=== PATIENT | male | born 1955 | race African-American/Black ===

== ENCOUNTER 2018-10-18 20:11 | Observation (INO) | payer BC, MEDICARE ==
--- NOTE | 2018-10-18 21:10 | RAD ---
ONE VIEW CHEST: HISTORY: Syncope. COMPARISON: None. FINDINGS: Atherosclerosis of the aortic knob. Normal cardiac silhouette. The pulmonary vessels and hilum are normal. No masses or consolidation. No pneumothorax or osseous abnormalities. IMPRESSION: 1. Atherosclerosis. 2. No acute cardiopulmonary process. POS: PPP
[2018-10-18 21:18] LABS: #Basophils 0.1 thou/uL (0.0-0.2); #Eosinphils 0.2 thou/uL (0.0-0.7); #Lymphocytes 1.5 thou/uL (1.20-3.40); #Monocytes 0.9 thou/uL (0.11-0.59); #Neutrophils 6.5 thou/uL (1.40-6.50); %Basophils 0.8 % (0.0-1.0); %Eosinophils 1.8 % (0.0-10.0); %Lymphocytes 16.2 % (21.0-51.0); %Monocytes 9.4 % (0.0-10.0); %Neutrophils 71.8 % (42.0-75.0); Hemoglobin 15.7 g/dL (14.0-18.0); Mean Corpuscular HGB CONC 33.4 g/dL (32.0-36.0); Mean Corpuscular Hemoglobin 31.5 pg (27.0-31.0); Mean Corpuscular Volume 94.3 fL (78.0-98.0); Mean Platelet Volume 9.8 fL (7.4-10.4); Platelet Count 133 thou/uL (130-400); RBC Distribution Width 13.9 % (11.5-14.5); Red Blood Cell (RBC) Count 4.98 mill/uL (4.70-6.10); White Blood Cell (WBC) Count 9.1 thou/uL (4.8-10.8)
[2018-10-18 21:38] LABS: ALT (SGPT) 18 U/L (8-55); AST (SGOT) 17 U/L (5-34); Albumin 4.2 g/dL (3.4-4.8); Alkaline Phosphatase 84 U/L (40-150); Anion Gap 14 mmol/L (10-20); BUN (Urea Nitrogen) 16 mg/dL (8.4-25.7); Bilirubin, Total 0.4 mg/dL (0.2-1.2); CK (CPK) 91 U/L (30-200); Calc. Creatinine Clearance 0 mL/min (70-130); Calcium 9.7 mg/dL (7.8-10.44); Carbon Dioxide 22 mmol/L (23-31); Chloride 102 mmol/L (98-107); Estimated GFR-MDRD 58; Globulin 3.2 g/dL (2.4-3.5); Glucose 129 mg/dL (80-115); Lipase 66 U/L (8-78); Potassium 3.5 mmol/L (3.5-5.1); Protein, Total 7.4 g/dL (5.8-8.1); Sodium 134 mmol/L (136-145)
--- NOTE | 2018-10-18 21:40 | CT ---
CT BRAIN NONCONTRAST: DATE: 10/18/2018 HISTORY: 63-year-old male with loss of consciousness. FINDINGS: There is no evidence of acute intra-axial or extra-axial hemorrhage. There is no midline shift or any other mass effect. There is a zoie cisterna magna. There is no evidence of obstructive hydrocephalus. Calvarium is intact. There is diffuse brain parenchymal volume loss. There are low att enuation areas in the white matter. These are nonspecific, but in a patient of this age, they are probably chronic ischemic white matter changes due to microvascular atherosclerosis. Tiny old lacunar infarctions of the basal ganglia and thalami, right greater than left. IMPRESSION: 1) No acute intracranial findings. 2) involutional changes and severe chronic ischemic white matter changes. 3) tiny old lacunar infarctions of bilateral deep loco nuclei.
[2018-10-19 01:02] LABS: Troponin I Less than 0.010 ng/mL (< 0.028)
[2018-10-19] MEDS ORDERED: Sodium Chloride 0.9% 1,000 ML IV SCH (02:30)
[2018-10-19 02:53] VITALS: BMI 34.2
[2018-10-19] MEDS ORDERED: hydrALAZINE 20 MG/ML VIAL SLOW IVP SCH (03:30)
[2018-10-19 03:53] LABS: #Eosinphils 0.2 thou/uL (0.0-0.7); #Lymphocytes 1.6 thou/uL (1.20-3.40); #Monocytes 0.9 thou/uL (0.11-0.59); #Neutrophils 5.6 thou/uL (1.40-6.50); %Basophils 0.1 % (0.0-1.0); %Eosinophils 1.9 % (0.0-10.0); %Lymphocytes 19.5 % (21.0-51.0); %Monocytes 10.4 % (0.0-10.0); %Neutrophils 68.1 % (42.0-75.0); Hemoglobin 14.2 g/dL (14.0-18.0); Mean Corpuscular Hemoglobin 31.8 pg (27.0-31.0); Mean Corpuscular Volume 93.5 fL (78.0-98.0); Mean Platelet Volume 10.5 fL (7.4-10.4); Platelet Count 124 thou/uL (130-400); RBC Distribution Width 13.8 % (11.5-14.5); Red Blood Cell (RBC) Count 4.47 mill/uL (4.70-6.10); White Blood Cell (WBC) Count 8.2 thou/uL (4.8-10.8)
[2018-10-19 03:55] LABS: Anion Gap 12 mmol/L (10-20); BUN (Urea Nitrogen) 17 mg/dL (8.4-25.7); Calc. Creatinine Clearance 86 mL/min (70-130); Calcium 9.8 mg/dL (7.8-10.44); Carbon Dioxide 25 mmol/L (23-31); Chloride 103 mmol/L (98-107); Estimated GFR-MDRD 59; Glucose 194 mg/dL (80-115); Magnesium 2.1 mg/dL (1.6-2.6); Potassium 3.6 mmol/L (3.5-5.1); Sodium 136 mmol/L (136-145)
[2018-10-19 04:00] LABS: Troponin I Less than 0.010 ng/mL (< 0.028)
[2018-10-19] MEDS: Sodium Chloride 0.9% 1,000 ML IV SCH (04:13)
[2018-10-19] MEDS: Fluticasone Propionate Nasal Spray 16 gm Bottle NASAL SCH ×2 (04:13→08:17)
[2018-10-19] MEDS ORDERED: HYDROcodone/Acetaminophen 5/325 mg Tablet PO PRN (09:50)
[2018-10-19] MEDS ORDERED: Senokot S 8.6-50 MG TAB PO PRN (09:50)
[2018-10-19] MEDS ORDERED: Acetaminophen 325 MG TAB PO PRN (09:50)
[2018-10-19] MEDS ORDERED: Dextrose 50% Abboject 50 ML SYRINGE SLOW IVP PRN (10:02)
[2018-10-19] MEDS ORDERED: HumaLOG 300 UNITS/3 ML VIAL SC PRN (10:02)
[2018-10-19] MEDS ORDERED: Dextrose 5% in Water 1,000 ML IV PRN (10:02)
[2018-10-19] MEDS ORDERED: Aspirin 325 mg Enteric Coated Tablet PO SCH (10:15)
--- NOTE | 2018-10-19 10:32 | ULT ---
US Carotid Doppler STANDARD History: Syncope Comparison: None. Findings: Real-time grayscale, color, and spectral analysis of the extracranial carotid and vertebral arteries was performed. High-grade plaque both common carotid arteries both calcific and soft. No elevated peak systolic [place] within the internal carotid arteries. Antegrade flow both vertebral arteries. Impression: High-grade plaque without hemodynamically significant stenosis.
--- NOTE | 2018-10-19 10:45 | RAD ---
PA CHEST AND LEFT RIBS TOTAL OF 4 VIEWS: Date: 10/19/18 HISTORY: Left rib pain with fall and injury. FINDINGS: Lungs appear well aerated clear. No evidence of left rib fracture identified. IMPRESSION: No evidence of left rib fractures. POS: OFF
--- NOTE | 2018-10-19 11:11 | MRI ---
MRI BRAIN WITHOUT CONTRAST: Date: 10/19/18 INDICATION: Syncope. Comparison made to CT head 10/18/18. FINDINGS: Ventricles have normal size and position. Mild cortical volume loss. Severe chronic ischemic white ma tter changes. No evidence of restricted diffusion. There is no evidence of acute lacunar or cortical infarct. No mass or edema. The intracranial internal carotid arteries and cerebral arteries show expected flow-voids. Dural veno us sinuses are patent. IMPRESSION: Severe chronic ischemic white matter changes. No acute process. POS: OFF
--- NOTE | 2018-10-19 11:41 | HP ---
PRIMARY CARE PHYSICIAN: [place]. CHIEF COMPLAINT: Syncope. HISTORY OF PRESENT ILLNESS: Mr. Taylor is a very pleasant 63-year-old black male who reported to the emergency room yesterday via EMS after he experienced a syncopal episode while talking to his landlord. He reports that he was talking to his landlord and the next thing he remembers was a lot of people around him including EMS. EMS reports that the landlord called 911 after the patient suddenly stopped talking and responding and noting that he was staring off into space. The patient denies any lightheadedness, chest pain, dizziness prior to the event. Does report some left-sided rib pain. Past medical history pertinent for diabetes, hypertension, CVA. Does have an upper respiratory infection, which he believes is viral with a cough. The patient had a CT scan while in the emergency room, which showed no acute findings, involutional changes, and severe chronic ischemic white matter changes. Three tiny old lacunar infarcts of bilateral deep loco nuclei. The patient's lab values pertinent for a creatinine of 1.47. We do not have a baseline for him. Glucose was 129 in the emergency room. Troponins x2 have been undetectable. His TCH was 0.75. EKG in the emergency room shows normal sinus rhythm, beats per minute 78, has a complete right bundle branch block, axis is left. Denies any chest pain currently or any shortness of breath. Does report pain to the left side of his ribs during coughing. The patient admitted to the stroke unit for further workup. PAST MEDICAL HISTORY: Diabetes type 2, hypertension, hyperlipidemia. PAST SURGICAL HISTORY: None. PSYCHIATRIC HISTORY: None. SOCIAL HISTORY: Denies any alcohol or drug. No smoking history. FAMILY HISTORY: Pertinent for his sister suddenly from what they believe was an [place]. REVIEW OF SYSTEMS: The patient reports mental status changes. Denies any focal weakness, numbness, tingling. Reports a cough, upper respiratory symptoms. Denies fever or chills. All other symptoms reviewed and are negative unless mentioned in the HPI. ALLERGIES: NONE. CURRENT MEDICATIONS: 1. Gabapentin 600 mg p.o. t.i.d. 2. Hydralazine 100 mg p.o. t.i.d. 3. Losartan/hydrochlorothiazide 100/25 one tablet p.o. daily. 4. Metformin 500 mg p.o. b.i.d. 5. Nifedipine ER 90 mg p.o. daily. 6. Pravastatin 20 mg p.o. at bedtime. PHYSICAL EXAMINATION: VITAL SIGNS: Blood pressure 133/80, pulse 78, respirations 15, pO2 sats are 97% on room air, temp is 97.9. CONSTITUTIONAL: The patient appears nontoxic. He is alert and oriented to person, place, and time. HEENT: Head is atraumatic and normocephalic. Eyes; eyelids are normal to inspection. Pupils are equal, round, and reactive to light. ENT; mouth exam is normal. Mucous membranes are moist. NECK: Normal range of motion. Trachea is midline. RESPIRATORY: Chest, breath sounds are clear. The patient has reproducible rib pain along the left lateral rib cage. CARDIOVASCULAR: Regular heart rate and rhythm. Heart sounds are normal. ABDOMEN: Bowel sounds are heard. Abdomen is nontender. EXTREMITIES: Upper extremity; normal range of motion. Motor strength is normal. Sensation intact. Radial pulses are normal. Lower extremity; normal inspection. Normal range of motion. Sensation intact. Pedal pulses are normal. NEUROLOGIC: The patient is oriented to person, place, and time. Speech is normal. There is no focal motor or sensory deficits. SKIN: Warm, dry, and normal in color. PSYCH: Has a normal affect. PLAN AND ASSESSMENT: 1. Syncope, altered mental status changes. The patient will have an echocardiogram. We will order an MRI of the brain without contrast, especially in light of CT scan showing old lacunar infarcts. Carotid Dopplers. We will keep the patient on a heart monitor. We will trend. 2. History of hypertension. We will trend. Restart home medications. Add p.r.n. medications as needed. 3. Hyperlipidemia. We will restart home medications. 4. Diabetes. Accu-Cheks a.c. and at bedtime. Insulin sliding scale mild as needed. We will restart home medications. Trend. 5. Deep venous thrombosis and gastrointestinal prophylaxis have been started. 6. Hospital course is dependent on clinical findings. Job ID: [id number]
[2018-10-19] MEDS: hydrALAZINE 25 MG TAB PO SCH ×2 (14:58→21:25)
[2018-10-19] MEDS: Gabapentin 300 MG CAP PO SCH ×2 (14:58→21:25)
[2018-10-19] MEDS ORDERED: Non-Formulary Item 1 EACH (Hydralazine Hcl [Hydralazine Hcl] 100 MG) PO SCH (15:00)
[2018-10-19] MEDS ORDERED: Non-Formulary Item 1 EACH (Gabapentin [Gabapentin] 600 MG) PO SCH (15:00)
[2018-10-19] MEDS: metFORMIN 500 MG TAB PO SCH (16:43)
[2018-10-19] MEDS ORDERED: Simvastatin 5 MG TAB PO SCH (21:00)
[2018-10-19] MEDS ORDERED: Pravastatin Sodium 20 MG TAB PO SCH (21:00)
[2018-10-19] MEDS: Famotidine 20 MG TAB PO SCH (21:25)
--- NOTE | 2018-10-20 01:59 | CON ---
DATE OF CONSULTATION: 10/19/2018 INDICATION FOR CONSULTATION: A 63-year-old patient with syncopal episode. HISTORY OF PRESENT ILLNESS: This is a very pleasant 63-year-old gentleman who has had no previous cardiac history that he is aware of. He did undergo stress testing many years ago, apparently was unremarkable. No further evaluation was done. He has a history of diabetes and hypertension as well as dyslipidemia. He was talking to his landlord apparently up beneath a tree, it was not too hot and the next thing he remembered is he was looking up the people around him and apparently he had a mariana syncopal episode without any forewarning. His CT scans and MRIs thus far I believe had been relatively unremarkable except for some white matter ischemic changes and some evidence of some old lacunar infarcts. There were no acute findings noted. His EKG does show a right bundle-branch block, but no evidence of significant bradycardia. No pauses have been noted. He had an echocardiogram performed which shows normal ejection fraction with evidence of left ventricular hypertrophy, but no other acute changes that would indicate episodes of possible ventricular tachycardia or pauses or asystole. PAST MEDICAL HISTORY: Significant for diabetes, hypertension, dyslipidemia. He has had some knee surgery as well as I believe right arm fracture. He has hypertension. He has had a cholecystectomy. SOCIAL HISTORY: He has a history of alcohol or tobacco abuse. He smoked for about 10 years, but stopped when he was about 29 years old. FAMILY HISTORY: Noncontributory for any early heart disease. His mother did have some heart disease, but uncertain exactly what happened. He said she was leaking from her heart, so thought she may have had some regurgitation, he is unclear. He also had a sister apparently who suddenly from possible sudden cardiac or myocardial infarction. REVIEW OF SYSTEMS: He has had some reports of some mental status changes. Otherwise, he had no significant complaints except for some occasional constipation and no other significant complaints on review of systems except for what is noted in history of present illness. MEDICATIONS: He presently is taking, 1. Aspirin 325 mg a day. 2. Pepcid 20 mg a day. 3. Neurontin 600 mg t.i.d. 4. Hydralazine 100 mg t.i.d. 5. Losartan/hydrochlorothiazide one tablet a day. 6. Metformin 500 mg b.i.d. 7. Procardia 90 mg daily. 8. Zocor 10 mg a day. 9. Tylenol and other p.r.n. medications. PHYSICAL EXAMINATION: GENERAL: Reveals a well-developed, well-nourished gentleman, who is in no acute distress. VITAL SIGNS: Stable. Blood pressure 133/80, heart rates in the 70s to 80s, it shows a sinus rhythm with a right bundle-branch block. O2 saturations are stable. Temperature is afebrile. HEENT: Shows the head to be normocephalic and atraumatic. Carotid pulses are present. There are no bruits. CHEST: Clear to auscultation without rales, rhonchi, or wheezing. CARDIOVASCULAR: Reveals a regular rate and rhythm with normal S1, S2. There is no S3 or S4. There are no significant murmurs, heaves, thrills, bruits, or rubs. ABDOMEN: Shows obesity with positive bowel sounds. No organomegaly or masses are noted. No tenderness. EXTREMITIES: Show no clubbing, cyanosis, or edema. Pedal pulses are difficult to palpate, but are present. He has well-healed surgical incision over the right knee. Otherwise, there are no significant abnormalities. NEUROLOGIC: He appears to be fully intact. There are no gross focal motor deficits noted. SKIN: Warm and dry. LABORATORY DATA: Show hemoglobin of 14.2, WBC is 8.2, platelet count 124,000. His creatinine was 1.45 with a BUN of 17, his sodium was 136, blood sugar was 194. His BNP was only 13. TSH was 0.7. Cardiac enzymes are negative. Chest x-ray showed no acute changes. His carotid Doppler study shows no evidence of significant stenosis. He did have, however, some plaque formation noted in both common carotids, but no significant elevation of the velocity was noted to indicate stenosis. IMPRESSION: Syncopal episode of uncertain etiology with a right bundle-branch block of uncertain duration in this gentleman who has some history of I believe diabetes. I would suggest that first he undergo some type of stress testing to rule out evidence for underlying ischemia as an etiology of possible ventricular tachycardia with arrhythmias in this patient. If the stress test is abnormal, he will need to undergo cardiac catheterization. If the stress test is unremarkable, then I would suggest he undergo implantation of an implantable loop recorder to see whether or not he has any further episodes as we did not notice any episodes of arrhythmias or any bradycardia or pauses since being admitted. Should he develop any episodes during the hospital course and obviously there will be changes in therapy based on what is noted. I have explained both of these to the patient. He will undergo stress testing and if this shows no significant abnormalities, we will proceed with a LINQ. If the stress test is abnormal, then I would suggest he undergo cardiac catheterization and eventually also still may need LINQ or other therapies may be warranted. As far as his other medical problems are concerned, for his diabetes and hypertension, these will be dealt with by the primary care service. Further care of the patient will be determined by the results of the stress test and possible cardiac catheterization if indicated. Job ID: [id number] MTDD
[2018-10-20] MEDS: Sodium Chloride 0.9% 1,000 ML IV SCH (04:06)
[2018-10-20 06:17] LABS: #Eosinphils 0.3 thou/uL (0.0-0.7); #Lymphocytes 1.6 thou/uL (1.20-3.40); #Monocytes 0.8 thou/uL (0.11-0.59); #Neutrophils 3.2 thou/uL (1.40-6.50); %Basophils 0.7 % (0.0-1.0); %Eosinophils 4.7 % (0.0-10.0); %Lymphocytes 27.6 % (21.0-51.0); %Monocytes 12.9 % (0.0-10.0); Hemoglobin 13.7 g/dL (14.0-18.0); Mean Corpuscular HGB CONC 33.8 g/dL (32.0-36.0); Mean Corpuscular Hemoglobin 31.8 pg (27.0-31.0); Mean Corpuscular Volume 94.1 fL (78.0-98.0); Mean Platelet Volume 9.9 fL (7.4-10.4); Platelet Count 127 thou/uL (130-400); RBC Distribution Width 13.7 % (11.5-14.5); Red Blood Cell (RBC) Count 4.32 mill/uL (4.70-6.10); White Blood Cell (WBC) Count 5.9 thou/uL (4.8-10.8)
[2018-10-20 06:41] LABS: Anion Gap 10 mmol/L (10-20); BUN (Urea Nitrogen) 11 mg/dL (8.4-25.7); Calc. Creatinine Clearance 115 mL/min (70-130); Calcium 8.9 mg/dL (7.8-10.44); Carbon Dioxide 27 mmol/L (23-31); Chloride 104 mmol/L (98-107); Estimated GFR-MDRD 83; Glucose 132 mg/dL (80-115); Potassium 3.5 mmol/L (3.5-5.1); Sodium 137 mmol/L (136-145)
[2018-10-20] MEDS ORDERED: NIFEdipine XL 90 MG TAB PO SCH (09:00)
[2018-10-20] MEDS ORDERED: Non-Formulary Item 1 EACH (Nifedipine [Nifedipine Er] 90 MG) PO SCH (09:00)
[2018-10-20] MEDS ORDERED: Losartan/Hydrochlorothiazide 100 mg/25 mg Tablet PO SCH (09:00)
[2018-10-20] MEDS ORDERED: Aspirin 325 mg Enteric Coated Tablet PO SCH (09:00)
[2018-10-20] MEDS: Gabapentin 300 MG CAP PO SCH ×2 (11:29→15:01)
[2018-10-20] MEDS: metFORMIN 500 MG TAB PO SCH ×2 (11:30→16:23)
[2018-10-20] MEDS: Famotidine 20 MG TAB PO SCH (11:30)
[2018-10-20] MEDS: hydrALAZINE 25 MG TAB PO SCH ×2 (11:31→16:22)
[2018-10-20] MEDS: Fluticasone Propionate Nasal Spray 16 gm Bottle NASAL SCH (11:36)
[2018-10-20] MEDS ORDERED: traMADol HCl 50 MG TAB PO PRN (11:50)
[2018-10-20] MEDS ORDERED: guaiFENesin/Dextromethorphan 10 ML UDCUP PO PRN (11:51)
[2018-10-20] MEDS: HYDROcodone/Acetaminophen 5/325 mg Tablet PO PRN ×2 (12:29→19:19)
[2018-10-20] MEDS ORDERED: Guaifenesin DM 100-10/5 ML UDCUP PO PRN (12:30)
--- NOTE | 2018-10-20 13:28 | NM ---
MYOCARDIAL PERFUSION SCAN: 10/20/18 Patient given 10 millicuries of technetium Sestamibi for rest imaging and 30 millicuries for stress i maging. The patient stressed according to Adenosine protocol. INDICATIONS: Syncope. Left ventricle imaged with SPECT imaging and presented in three planes with attenuation correction im ages obtained. FINDINGS: Activity throughout left ventricle is seen on stress and rest images which appears symmetric. No evid ence of reversible ischemia identified. Wall motion appears normally maintained. Ejection fraction recorded at 60%. IMPRESSION: No evidence of reversible ischemia. POS: OFF
[2018-10-20 16:16] VITALS: TEMP 98.2
[2018-10-20] MEDS ORDERED: Lidocaine 1% w/Epinephrine 1:100K 20 ML VIAL ONE (16:16)
[2018-10-20 16:23] VITALS: BP 131/80
[2018-10-20] MEDS ORDERED: Acetaminophen/Codeine 30-300mg Tablet PO PRN (17:19)
--- NOTE | 2018-10-20 17:19 | PDOC.CPN ---
- Subjective Date: 10/20/18 Time: 17:00 - Objective Allergies/Adverse Reactions: Allergies Allergy/AdvReac Type Severity Reaction Status Date / Time No Known Drug Allergies Allergy Verified 10/19/18 03:17 Visit Medications: Current Medications Acetaminophen (Tylenol) 650 mg PO Q4H PRN PRN Reason: Headache/Fever/Mild Pain (1-3) Hydrocodone Bitart/Acetaminophen ([place] 5/325) 1 tab PO Q4H PRN PRN Reason: Moderate Pain (4-6) Hydrocodone Bitart/Acetaminophen ([place] 5/325) 2 tab PO Q4H PRN PRN Reason: Severe Pain (7-10) Last Admin: 10/20/18 12:29 Dose: 2 tab Aspirin (Ecotrin) 325 mg PO DAILY [facility] Last Admin: 10/20/18 11:30 Dose: 325 mg Dextrose/Water (Dextrose 50%) 25 gm SLOW IVP PRN PRN PRN Reason: Hypoglycemia Famotidine (Pepcid) 20 mg PO BID [facility] Last Admin: 10/20/18 11:30 Dose: 20 mg Fluticasone Propionate (Flonase Nasal [place]) 0 gm NASAL DAILY [facility] Last Admin: 10/20/18 11:36 Dose: 1 applic Gabapentin (Neurontin) 600 mg PO TID [facility] Last Admin: 10/20/18 15:01 Dose: 600 mg Glucagon (Glucagon) 1 mg IM PRN PRN PRN Reason: Hypoglycemia Guaifenesin/Dextromethorphan (Robitussin Dm) 5 ml PO Q6H PRN PRN Reason: Cough Last Admin: 10/20/18 12:30 Dose: 5 ml HCTZ/Losartan Potassium (Hyzaar 100/25) 1 tab PO DAILY [facility] Last Admin: 10/20/18 11:36 Dose: 1 tab Hydralazine HCl (Apresoline) 100 mg PO TID [facility] Last Admin: 10/20/18 16:22 Dose: 100 mg Dextrose/Water (D5w) 1,000 mls @ 0 mls/hr IV .Q0M PRN PRN Reason: Hypoglycemia Insulin Human Lispro (Humalog) 0 units SC .MILD SLIDING SCALE PRN PRN Reason: Mild Correctional Scale Last Admin: 10/20/18 12:38 Dose: 2 unit Metformin HCl (Glucophage) 500 mg PO BID[facility] Last Admin: 10/20/18 16:23 Dose: 500 mg Nifedipine (Procardia Xl) 90 mg PO DAILY [facility] Last Admin: 10/20/18 11:29 Dose: 90 mg Senna/Docusate Sodium (Senokot S) 2 tab PO BID PRN PRN Reason: Constipation Last Admin: 10/19/18 21:26 Dose: 2 tab Simvastatin (Zocor) 10 mg PO HS [facility] Last Admin: 10/19/18 21:26 Dose: 10 mg Sodium Chloride (Flush - Normal Saline) 10 ml IVF Q12HR [facility] Sodium Chloride (Flush - Normal Saline) 10 ml IVF PRN PRN PRN Reason: Saline Flush Tramadol HCl (Ultram) 50 mg PO Q6H PRN PRN Reason: Mild Pain (1-3) Vital Signs & Weight: Vital Signs Temp Pulse Pulse Resp BP BP BP 10/20/18 16:22 68 131/80 10/20/18 16:00 98.2 F 68 17 143/76 H 10/20/18 13:02 86 108/77 10/20/18 11:57 97.9 F 69 16 174/100 H 10/20/18 11:31 72 174/100 H 10/20/18 11:29 68 10/20/18 07:51 99 F 68 18 164/98 H Pulse Ox 10/20/18 16:22 10/20/18 16:00 97 10/20/18 13:02 10/20/18 11:57 97 10/20/18 11:31 10/20/18 11:29 10/20/18 07:51 96 Weight 260 lb - Physical Exam Neck: supple neck, no bruit, no lymphadenopathy Cardiac: regular rate and rhythm, S1/S2 Lungs: clear to auscultation Neuro: grossly intact Abdomen: unremarkable Skin: clear Musculoskeletal: normal range of motion - Labs Result Diagrams: 10/20/18 05:52 10/20/18 05:52 Troponin/CKMB Troponin I Less than 0.010 ng/mL (< 0.028) 10/19/18 03:21 - Telemetry Sinus rhythms and dysrhythmias: sinus rhythm - Assessment/Plan Assessment/Plan: 1. Syncope. Undetermined etiology.. Stress test : no ischemia. Echo: nl EF. Plan for implantable loop recorder.
--- NOTE | 2018-10-21 20:38 | CCL ---
Date of procedure: 10/20/18 INDICATIONS FOR PROCEDURE: 63-year-old male with syncope with no etiology noted for the syncopal episode of sudden onset without symptoms previously. He has undergone a stress test which showed no evidence of ischemia. He had ech ocardiogram which showed a normal ejection fraction. He was advised to undergo an implantable Linq de vice. This was implanted today without difficulties or complications. Implantable loop recorder from [employer]. The patient underwent the procedure without difficulties or complications after being pre pped and draped in a sterile fashion using local lidocaine anesthesia. The device was easily implante d up underneath the skin. The patient may return to the Recovery area or to his room without any othe r expected difficulties or complications. He will be continued to follow transtelephonically. He will be seen in the office in 7 to 10 days for evaluation of the wound site.
== END 2018-10-20 19:25 | disposition home or self-care (01) ==
LOC: ERS 20:11 → 2SE 10-19 00:57
PROVIDERS: ADMIT Hospitalist; ATTEND Hospitalist
PROC: 0JH632Z Insertion of Monitoring Device into Chest Subcutaneous Tissue and Fascia, Percutaneous Approach (ICD-10-PCS; principal; 2018-10-20)
DX: R55 Syncope and collapse (principal); R41.82 Altered mental status, unspecified; I45.10 Unspecified right bundle-branch block; I10 Essential (primary) hypertension; E11.9 Type 2 diabetes mellitus without complications; E78.5 Hyperlipidemia, unspecified; J06.9 Acute upper respiratory infection, unspecified; F10.11 Alcohol abuse, in remission; Z87.891 Personal history of nicotine dependence; Z86.73 Personal history of transient ischemic attack (TIA), and cerebral infarction without residual deficits; Z79.84 Long term (current) use of oral hypoglycemic drugs; Z79.899 Other long term (current) drug therapy
CPT/HCPCS: 33285; 70450; 70551; 71045; 71100; 78452; 80048 ×2; 80053; 82550; 82962 ×3; 83690; 83735; 83880; 84443; 84484 ×3; 85025 ×3; 93005; 93017; 93306; 93880; 96360; 96361 ×2; 97139 ×5; 99285; A9500; C1764; G0378 ×3; 36415; 36416; J0153; J0360; J2001

== ENCOUNTER 2020-12-28 15:25 | Emergency (ER) | payer MEDICARE ==
[2020-12-28] MEDS ORDERED: Morphine 4 MG/ML VIAL ONE (16:38)
== END 2020-12-28 17:45 | disposition home or self-care (01) ==
LOC: ERS 15:25
DX: M25.512 Pain in left shoulder (principal); M25.552 Pain in left hip; I10 Essential (primary) hypertension; E11.9 Type 2 diabetes mellitus without complications; Z98.890 Other specified postprocedural states
CPT/HCPCS: 96372; 99283; J2270

== ENCOUNTER 2021-01-01 16:05 | Inpatient (IN) | payer MEDICARE ==
[~2021-01-01 16:05] MED LIST: Iopamidol-370 76% 500 ML 1 ML ONE
[2021-01-01 16:41] LABS: #Eosinphils 0.1 thou/uL (0.0-0.7); #Lymphocytes 1.5 thou/uL (1.20-3.40); #Monocytes 0.7 thou/uL (0.11-0.59); %Basophils 0.2 % (0.0-1.0); %Eosinophils 1.7 % (0.0-10.0); %Lymphocytes 17.9 % (21.0-51.0); %Monocytes 8.4 % (0.0-10.0); %Neutrophils 71.8 % (42.0-75.0); Hemoglobin 13.7 g/dL (14.0-18.0); Mean Corpuscular HGB CONC 33.6 g/dL (32.0-36.0); Mean Corpuscular Hemoglobin 32.3 pg (27.0-31.0); Mean Platelet Volume 9.1 fL (7.4-10.4); Platelet Count 164 thou/uL (130-400); RBC Distribution Width 13.9 % (11.5-14.5); Red Blood Cell (RBC) Count 4.25 mill/uL (4.70-6.10); White Blood Cell (WBC) Count 8.4 thou/uL (4.8-10.8)
[2021-01-01 16:53] LABS: Prothrombin Time 13.6 sec (12.0-14.7)
[2021-01-01 16:56] LABS: PTT 18.9 sec (22.9-36.1)
[2021-01-01 16:57] LABS: ALT (SGPT) 25 U/L (8-55); AST (SGOT) 17 U/L (5-34); Albumin 3.8 g/dL (3.4-4.8); Alkaline Phosphatase 183 U/L (40-110); Anion Gap 15 mmol/L (10-20); BUN (Urea Nitrogen) 17 mg/dL (8.4-25.7); Bilirubin, Total 0.4 mg/dL (0.2-1.2); Calc. Creatinine Clearance 0 mL/min (70-130); Calcium 10.9 mg/dL (7.8-10.44); Carbon Dioxide 24 mmol/L (23-31); Chloride 107 mmol/L (98-107); Globulin 3.9 g/dL (2.4-3.5); Glucose 162 mg/dL (80-115); Protein, Total 7.7 g/dL (5.8-8.1); Sodium 142 mmol/L (136-145)
[2021-01-01] MEDS ORDERED: Acetaminophen 325 MG TAB PO PRN (22:32)
[2021-01-01] MEDS ORDERED: Ondansetron PF 4 MG/2 ML Vial IVP PRN (22:32)
[2021-01-01] MEDS ORDERED: hydrALAZINE 20 MG/ML VIAL SLOW IVP SCH (23:22)
[2021-01-01] MEDS ORDERED: Dextrose 5% in Water 1,000 ML IV PRN (23:24)
[2021-01-01] MEDS ORDERED: Dextrose 50% Abboject 50 ML SYRINGE SLOW IVP PRN (23:24)
[2021-01-01] MEDS ORDERED: HumaLOG 300 UNITS/3 ML VIAL SC PRN (23:24)
[2021-01-02 00:29] VITALS: BMI 31.1
[2021-01-02 05:34] LABS: Bilirubin Negative (Negative); Blood, Urine Negative (Negative); Clarity Clear (Clear); Glucose, Urine (Dipstick) Normal (Negative); Ketone, Urine 10 mg/dL (Negative); Leukocyte 75 Leu/uL (Negative); Nitrite 2+ (Negative); Protein, Urine (Dipstick) 20 mg/dL (Neg-Trace); Squamous Epithelial 0-3 HPF (0-3); Urobilinogen Normal mg/dL (Less than 2); pH, Urine 5.5 (5.0-9.0)
[2021-01-02 05:36] LABS: Bacteria/HPF 1+ HPF (None Seen); Specific Gravity, Urine 1.046 (1.002-1.036)
[2021-01-02 05:37] LABS: Urine Culture Reflex Yes Yes
[2021-01-02 06:25] LABS: #Eosinphils 0.2 thou/uL (0.0-0.7); #Lymphocytes 1.3 thou/uL (1.20-3.40); #Monocytes 0.7 thou/uL (0.11-0.59); #Neutrophils 5.1 thou/uL (1.40-6.50); %Basophils 0.1 % (0.0-1.0); %Eosinophils 2.2 % (0.0-10.0); %Lymphocytes 17.6 % (21.0-51.0); %Monocytes 9.1 % (0.0-10.0); Hemoglobin 12.2 g/dL (14.0-18.0); Mean Corpuscular HGB CONC 33.9 g/dL (32.0-36.0); Mean Corpuscular Hemoglobin 32.3 pg (27.0-31.0); Mean Corpuscular Volume 95.4 fL (78.0-98.0); Mean Platelet Volume 8.6 fL (7.4-10.4); Platelet Count 152 thou/uL (130-400); RBC Distribution Width 13.9 % (11.5-14.5); Red Blood Cell (RBC) Count 3.79 mill/uL (4.70-6.10); White Blood Cell (WBC) Count 7.1 thou/uL (4.8-10.8)
[2021-01-02 06:45] LABS: Anion Gap 10 mmol/L (10-20); BUN (Urea Nitrogen) 16 mg/dL (8.4-25.7); Calc. Creatinine Clearance 119 mL/min (70-130); Calcium 10.4 mg/dL (7.8-10.44); Carbon Dioxide 25 mmol/L (23-31); Chloride 109 mmol/L (98-107); Glucose 133 mg/dL (80-115); Potassium 3.7 mmol/L (3.5-5.1); Sodium 140 mmol/L (136-145)
[2021-01-02 14:13] LABS: SARS-CoV-2 PCR by NAA Not Detected (NotDetected)
[2021-01-02] MEDS: Gabapentin 300 MG CAP PO SCH ×2 (16:14→20:42)
[2021-01-02] MEDS: hydrALAZINE 25 MG TAB PO SCH ×2 (16:15→20:41)
[2021-01-02] MEDS: Simvastatin 10 MG TAB PO SCH (20:42)
[2021-01-03 05:35] LABS: #Eosinphils 0.2 thou/uL (0.0-0.7); #Lymphocytes 1.1 thou/uL (1.20-3.40); #Monocytes 0.5 thou/uL (0.11-0.59); #Neutrophils 3.6 thou/uL (1.40-6.50); %Basophils 0.2 % (0.0-1.0); %Eosinophils 3.6 % (0.0-10.0); %Lymphocytes 20.9 % (21.0-51.0); %Monocytes 9.5 % (0.0-10.0); %Neutrophils 65.8 % (42.0-75.0); Hemoglobin 11.3 g/dL (14.0-18.0); Mean Corpuscular HGB CONC 33.1 g/dL (32.0-36.0); Mean Corpuscular Hemoglobin 32.1 pg (27.0-31.0); Mean Platelet Volume 8.9 fL (7.4-10.4); Platelet Count 141 thou/uL (130-400); RBC Distribution Width 14.2 % (11.5-14.5); Red Blood Cell (RBC) Count 3.52 mill/uL (4.70-6.10); White Blood Cell (WBC) Count 5.4 thou/uL (4.8-10.8)
[2021-01-03 05:59] LABS: Anion Gap 10 mmol/L (10-20); BUN (Urea Nitrogen) 16 mg/dL (8.4-25.7); Calc. Creatinine Clearance 103 mL/min (70-130); Calcium 9.9 mg/dL (7.8-10.44); Carbon Dioxide 23 mmol/L (23-31); Chloride 109 mmol/L (98-107); Glucose 160 mg/dL (80-115); Potassium 3.6 mmol/L (3.5-5.1); Sodium 138 mmol/L (136-145)
[2021-01-03] MEDS ORDERED: Fleet Enema 133 ML BOT PR SCH (06:00)
[2021-01-03] MEDS: Gabapentin 300 MG CAP PO SCH ×4 (08:11→21:25)
[2021-01-03] MEDS: Losartan/Hydrochlorothiazide 100 mg/25 mg Tablet PO SCH ×2 (08:12→09:35)
[2021-01-03] MEDS: hydrALAZINE 25 MG TAB PO SCH ×4 (08:12→21:25)
[2021-01-03] MEDS: NIFEdipine XL 90 MG TAB PO SCH ×2 (08:12→09:35)
[2021-01-03] MEDS ORDERED: Lidocaine 1% PF 5 ML VIAL ONE (08:22)
[2021-01-03] MEDS ORDERED: PROPOFOL 200 MG/20 ML VIAL ONE (08:22)
[2021-01-03] MEDS ORDERED: Morphine Sulfate 2 MG/ML SYRINGE SLOW IVP PRN (08:46)
[2021-01-03] MEDS ORDERED: Ondansetron HCl/PF 4 MG/2 ML Vial IVP PRN (08:46)
[2021-01-03] MEDS: Simvastatin 10 MG TAB PO SCH (21:25)
[2021-01-04] MEDS: hydrALAZINE 25 MG TAB PO SCH ×3 (07:47→20:49)
[2021-01-04] MEDS: Gabapentin 300 MG CAP PO SCH ×3 (07:47→20:50)
[2021-01-04] MEDS: NIFEdipine XL 90 MG TAB PO SCH (07:48)
[2021-01-04] MEDS: Losartan/Hydrochlorothiazide 100 mg/25 mg Tablet PO SCH (07:48)
[2021-01-04] MEDS: Simvastatin 10 MG TAB PO SCH (20:50)
[2021-01-05] MEDS ORDERED: Furosemide 40 MG/4 ML VIAL ONE (08:17)
[2021-01-05 08:25] VITALS: BP 153/93; TEMP 98.3
[2021-01-05] MEDS ORDERED: Lorazepam 2 MG/ML VIAL ONE (08:25)
[2021-01-05 08:59] LABS: #Basophils 0.1 thou/uL (0.0-0.2); #Eosinphils 0.3 thou/uL (0.0-0.7); #Lymphocytes 5.1 thou/uL (1.20-3.40); #Monocytes 0.7 thou/uL (0.11-0.59); #Neutrophils 4.5 thou/uL (1.40-6.50); %Basophils 0.5 % (0.0-1.0); %Eosinophils 2.5 % (0.0-10.0); %Lymphocytes 48.1 % (21.0-51.0); %Monocytes 6.7 % (0.0-10.0); %Neutrophils 42.2 % (42.0-75.0); MDiff Complete? YES; Macrocytosis SLIGHT = 6-15 cells (100X) (0-5/hpf); Mean Corpuscular HGB CONC 30.9 g/dL (32.0-36.0); Mean Corpuscular Hemoglobin 32.3 pg (27.0-31.0); Mean Platelet Volume 9.5 fL (7.4-10.4); Platelet Count 126 thou/uL (130-400); RBC Distribution Width 14.5 % (11.5-14.5); Red Blood Cell (RBC) Count 4.32 mill/uL (4.70-6.10); White Blood Cell (WBC) Count 10.6 thou/uL (4.8-10.8)
[2021-01-05 09:05] LABS: ALT (SGPT) 16 U/L (8-55); AST (SGOT) 13 U/L (5-34); Albumin 3.4 g/dL (3.4-4.8); Alkaline Phosphatase 127 U/L (40-110); Anion Gap 26 mmol/L (10-20); BUN (Urea Nitrogen) 20 mg/dL (8.4-25.7); Bilirubin, Total 0.3 mg/dL (0.2-1.2); Calc. Creatinine Clearance 76 mL/min (70-130); Calcium 10.6 mg/dL (7.8-10.44); Chloride 112 mmol/L (98-107); Globulin 3.4 g/dL (2.4-3.5); Glucose 227 mg/dL (80-115); Potassium 5.6 mmol/L (3.5-5.1); Protein, Total 6.8 g/dL (5.8-8.1); Sodium 140 mmol/L (136-145)
[2021-01-05 09:11] LABS: Carbon Dioxide 8 mmol/L (23-31)
== END 2021-01-05 08:50 | disposition expired | DRG 377 ==
LOC: ERS 16:05 → T4-A 21:08 → OBSVTOIN 01-04 07:46
PROVIDERS: ADMIT Student in an Organized Health Care Education/Training Program; ATTEND Family Medicine
PROC: 0DJ08ZZ Inspection of Upper Intestinal Tract, Via Natural or Artificial Opening Endoscopic (ICD-10-PCS; principal; 2021-01-03)
PROC: 0DJD8ZZ Inspection of Lower Intestinal Tract, Via Natural or Artificial Opening Endoscopic (ICD-10-PCS; 2021-01-03)
DX: K92.1 Melena (principal); I21.09 ST elevation (STEMI) myocardial infarction involving other coronary artery of anterior wall; K55.1 Chronic vascular disorders of intestine; E87.2 Acidosis; Z66 Do not resuscitate; Z20.822 Contact with and (suspected) exposure to COVID-19; E78.5 Hyperlipidemia, unspecified; E11.22 Type 2 diabetes mellitus with diabetic chronic kidney disease; I10 Essential (primary) hypertension; K64.8 Other hemorrhoids; K62.89 Other specified diseases of anus and rectum; Z79.84 Long term (current) use of oral hypoglycemic drugs; Z79.82 Long term (current) use of aspirin; Z79.899 Other long term (current) drug therapy; Z98.890 Other specified postprocedural states
CPT/HCPCS: 36415; 36416; 71045; 74177; 80048; 80053; 81001; 83880; 84484; 85025; 85610; 85730; 86140; 86850; 86900; 86901; 87086; 93005; 93010; 96365; 96375; 96376; G0378; J0360; J1815; J1956; J2704; Q9967; U0003; U0005